=== PATIENT | male | born 2000 | race Caucasian/White ===

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

== ENCOUNTER 2021-10-14 08:32 | Day surgery (SDC) | payer BC ==
[~2021-10-14 08:32] MED LIST: Lactated Ringers 1,000 ML IV SCH; Midazolam 1 MG/ML 2 ML SDV ONE; Propofol 200 MG/20 ML SDV ONE; fentaNYL 100 MCG/2 ML SDV ONE
[2021-10-14] MEDS ORDERED: Propofol 200 MG/20 ML SDV ONE (10:06)
[2021-10-14] MEDS ORDERED: Lactated Ringers 1,000 ML IV SCH (10:30)
== END 2021-10-14 11:36 | disposition home or self-care (01) ==
LOC: MW.SDS 08:32
PROVIDERS: ATTEND Surgery
DX: K52.9 Noninfective gastroenteritis and colitis, unspecified (principal); K29.50 Unspecified chronic gastritis without bleeding; K20.90 Esophagitis, unspecified without bleeding; Z80.0 Family history of malignant neoplasm of digestive organs
CPT/HCPCS: 43239; 45380; J2250; J2704; J3010; J7120; 00813

== ENCOUNTER 2022-06-02 22:41 | Emergency (ER) | payer OTHER, BC | END 2022-06-03 01:19 | LOC: MW.ED 22:41 | DX: H93.12 Tinnitus, left ear (principal); Z02.89 Encounter for other administrative examinations; V89.2XXA Person injured in unspecified motor-vehicle accident, traffic, initial encounter; Y92.410 Unspecified street and highway as the place of occurrence of the external cause | CPT/HCPCS: 99283 ==